=== PATIENT | male | born 1940 | race Caucasian/White ===

== ENCOUNTER 2022-02-19 13:08 | Outpatient (CLI) | payer MEDICARE, BC | END 2022-02-19 13:09 | disposition home or self-care (01) | LOC: CSHCT 13:08 | PROVIDERS: ATTEND Nurse Practitioner | DX: Z01.810 Encounter for preprocedural cardiovascular examination (principal); I48.0 Paroxysmal atrial fibrillation; K92.2 Gastrointestinal hemorrhage, unspecified | CPT/HCPCS: 71275 ==

== ENCOUNTER 2022-07-14 11:12 | Outpatient (CLI) | payer MEDICARE, BC ==
[2022-07-14 13:29] LABS: Hemoglobin 10.1 g/dL (13.5-17.5); Mean Corpuscular Hemoglobin 25.7 pg (27.0-33.0); Mean Platelet Volume 12.8 fl (7.4-10.4); Platelet Count 230 10x3/uL (150-450); RBC Distribution Width 17.8 % (11.5-14.5); Red Blood Cell (RBC) Count 3.93 10x6/uL (4.32-5.72); White Blood Cell (WBC) Count 11.6 10x3/uL (3.5-10.5)
[2022-07-14 13:47] LABS: PTT 24.4 sec (22.0-33.0); Prothrombin Time 10.5 sec (9.5-12.1)
[2022-07-14 13:55] LABS: Anion Gap 16 mmol/L (10-20); BUN (Urea Nitrogen) 26 mg/dL (8.4-25.7); Calc. Creatinine Clearance 0 mL/min (70-130); Calcium 8.9 mg/dL (7.8-10.44); Carbon Dioxide 22 mmol/L (23-31); Chloride 104 mmol/L (98-107); Estimated GFR 70; Glucose 170 mg/dL (83-110); Potassium 4.7 mmol/L (3.5-5.1); Sodium 137 mmol/L (136-145)
== END 2022-07-14 11:13 | disposition home or self-care (01) ==
LOC: CSHLAB 11:12
PROVIDERS: ATTEND Specialist
DX: Z01.818 Encounter for other preprocedural examination (principal)
CPT/HCPCS: 71045; 80048; 85027; 85610; 85730; 93005; 93010

== ENCOUNTER → 2022-07-17 | Day surgery (SDC) | payer MEDICARE, BC ==
[~2022-07-17] MED LIST: Acetaminophen/Codeine 30-300mg Tablet PO PRN; Adenosine 6 MG/2 ML VIAL ONE; Amlodipine 5 MG TAB PO SCH; Atorvastatin Calcium 40 MG TAB PO SCH; Bivalirudin 250 MG VIAL ONE; Clopidogrel Bisulfate 75 MG TAB PO SCH; Digoxin 0.25 MG TAB PO SCH; Escitalopram Oxalate 10 mg Tablet PO SCH; Fentanyl 100 MCG/2 ML VIAL ONE; Furosemide 20 MG TAB PO SCH; Heparin 10,000 UNITS/ 10 ML VIAL ONE; Iopamidol 300 61% 100 ML VIAL FS ONE; Lantus 1000 UNITS/10 ML VIAL SC SCH; Levothyroxine Sodium 50 MCG TAB PO SCH; Lisinopril 10 MG TAB PO SCH; Metoprolol Tartrate 50 MG TAB PO SCH; Midazolam HCl 2 mg/2 ml Vial ONE; Mometasone/Formoterol 200/5 60 PUFF INH SCH; Montelukast Sodium 10 mg Tablet PO SCH; Multivitamin W/ Minerals 1 TAB PO SCH; Nitroglycerin 0.4 MG TAB (25 Tab Bottle) SL PRN; Nitroglycerin 50 MG/250 ML BOT 0 ML ONE; Sodium Chloride 0.9% 200 ML IV PRN; Thiamine 100 MG TAB PO SCH; Ventolin HFA Inhaler 60 PUFF INHALER INH PRN; Verapamil 5 MG/2 ML VIAL ONE; cloNIDine 0.1 MG TAB PO SCH; hydrALAZINE 25 MG TAB PO SCH; metFORMIN 500 MG TAB PO SCH
== END ==
LOC: CSHSDC 07:37
PROVIDERS: ATTEND Specialist
DX: I25.10 Atherosclerotic heart disease of native coronary artery without angina pectoris (principal); I11.0 Hypertensive heart disease with heart failure; I50.22 Chronic systolic (congestive) heart failure; I48.92 Unspecified atrial flutter; I35.0 Nonrheumatic aortic (valve) stenosis; E78.2 Mixed hyperlipidemia; I25.2 Old myocardial infarction; E11.9 Type 2 diabetes mellitus without complications; K21.9 Gastro-esophageal reflux disease without esophagitis; M19.90 Unspecified osteoarthritis, unspecified site; E66.01 Morbid (severe) obesity due to excess calories; Z68.30 Body mass index [BMI] 30.0-30.9, adult; Z79.84 Long term (current) use of oral hypoglycemic drugs; Z95.2 Presence of prosthetic heart valve; Z86.16 Personal history of COVID-19; Z79.899 Other long term (current) drug therapy; Z87.891 Personal history of nicotine dependence; Z88.8 Allergy status to other drugs, medicaments and biological substances
CPT/HCPCS: 85347 ×2; 92978; 92979; 93455; C1753; C1769; C1874 ×2; C1887 ×2; C9604; 92937; 99152; 99153; J0153; J0583; J1644; J2250; J3010; Q9967

== ENCOUNTER 2024-07-26 07:44 | Outpatient (CLI) | payer MEDICARE | END 2024-07-26 07:45 | disposition home or self-care (01) | LOC: CSHCP 07:44 | PROVIDERS: ATTEND Internal Medicine | DX: R06.02 Shortness of breath (principal); J44.9 Chronic obstructive pulmonary disease, unspecified | CPT/HCPCS: 94010; 94664; 94729; 94760 ==